=== PATIENT | female | born 1935 ===

== ENCOUNTER 2018-03-23 11:57 | Outpatient (CLI) | payer OTHER ==
[~2018-03-23 11:57] MED LIST: COREG CR10 MG; ZOCOR20 MG
== END 2018-03-23 12:06 | disposition home or self-care (01) ==
LOC: RAD 11:57
DX: M25.552 Pain in left hip (principal); M25.551 Pain in right hip; M54.89 Other dorsalgia

== ENCOUNTER 2018-06-02 12:15 | Outpatient (CLI) | payer OTHER | END 2018-06-02 16:24 | disposition home or self-care (01) | LOC: NUCLEAR 12:15 | DX: M81.0 Age-related osteoporosis without current pathological fracture (principal) ==

== ENCOUNTER 2018-12-14 10:18 | Outpatient (CLI) | payer OTHER | END 2018-12-14 10:29 | disposition home or self-care (01) | LOC: MRI 10:18 | DX: F09 Unspecified mental disorder due to known physiological condition (principal); F03.90 Unspecified dementia, unspecified severity, without behavioral disturbance, psychotic disturbance, mood disturbance, and anxiety | CPT/HCPCS: 70551 ==

== ENCOUNTER 2019-08-28 11:55 | Emergency (ER) | payer OTHER ==
[~2019-08-28] VITALS: Ht 167.6 cm; Wt 76.7 kg
[2019-08-28] MEDS ORDERED: ZETIA10 MG (12:13)
[2019-08-28] MEDS ORDERED: PLAVIX75 MG (12:13)
[2019-08-28] MEDS ORDERED: HORIZANT300 MG (12:14)
[2019-08-28] MEDS ORDERED: CARVEDILOL ER40 MG (12:14)
[2019-08-28] MEDS ORDERED: PRAVASTATIN SOD20 MG (12:14)
== END 2019-08-28 14:55 | disposition home or self-care (01) ==
LOC: ER 11:55
DX: S00.03XA Contusion of scalp, initial encounter (principal); S20.211A Contusion of right front wall of thorax, initial encounter; R42 Dizziness and giddiness; W18.09XA Striking against other object with subsequent fall, initial encounter; Y93.89 Activity, other specified; Y92.038 Other place in apartment as the place of occurrence of the external cause; Y99.8 Other external cause status

== ENCOUNTER 2019-10-05 14:54 | Outpatient (CLI) | payer OTHER ==
[~2019-10-05 14:54] MED LIST changes: +CARVEDILOL ER40 MG; +HORIZANT300 MG; +PLAVIX75 MG; +PRAVASTATIN SOD20 MG; +ZETIA10 MG
== END 2019-10-05 15:30 | disposition home or self-care (01) ==
LOC: NUCLEAR 14:54
DX: L03.113 Cellulitis of right upper limb (principal); I87.2 Venous insufficiency (chronic) (peripheral); E78.2 Mixed hyperlipidemia

== ENCOUNTER 2021-02-24 11:16 | Outpatient (CLI) | payer OTHER | END 2021-02-24 11:25 | disposition home or self-care (01) | LOC: RAD 11:16 | PROVIDERS: ATTEND Internal Medicine | DX: M79.671 Pain in right foot (principal); R42 Dizziness and giddiness | CPT/HCPCS: 70551 ==

== ENCOUNTER 2021-03-02 08:40 | Outpatient (CLI) | payer OTHER | END 2021-03-02 08:50 | disposition home or self-care (01) | LOC: LAB 08:40 | PROVIDERS: ATTEND Orthopaedic Surgery | DX: M85.89 Other specified disorders of bone density and structure, multiple sites (principal); E88.89 Other specified metabolic disorders; M81.8 Other osteoporosis without current pathological fracture; E83.42 Hypomagnesemia; E56.1 Deficiency of vitamin K ==

== ENCOUNTER 2021-03-05 12:47 | Outpatient (CLI) | payer OTHER | END 2021-03-05 12:49 | disposition home or self-care (01) | LOC: NUCLEAR 12:47 | PROVIDERS: ATTEND Orthopaedic Surgery | DX: M81.0 Age-related osteoporosis without current pathological fracture (principal) ==

== ENCOUNTER 2021-03-09 10:25 | Outpatient (CLI) | payer OTHER | END 2021-03-09 10:33 | disposition home or self-care (01) | LOC: RAD 10:25 | PROVIDERS: ATTEND Orthopaedic Surgery | DX: M25.571 Pain in right ankle and joints of right foot (principal); S92.354A Nondisplaced fracture of fifth metatarsal bone, right foot, initial encounter for closed fracture; X58.XXXA Exposure to other specified factors, initial encounter; Y93.89 Activity, other specified; Y92.89 Other specified places as the place of occurrence of the external cause; Y99.8 Other external cause status ==

== ENCOUNTER → 2023-03-29 12:03 | Outpatient (CLI) | payer OTHER | END | disposition home or self-care (01) | LOC: LAB 12:03 | PROVIDERS: ATTEND Orthopaedic Surgery | DX: E83.42 Hypomagnesemia (principal); E56.1 Deficiency of vitamin K; E88.89 Other specified metabolic disorders; M81.8 Other osteoporosis without current pathological fracture ==